=== PATIENT | male | born 1970 | race Caucasian/White ===

== ENCOUNTER 2022-09-01 09:20 | Outpatient (REF) | payer OTHER, SELFPAY | END 2022-09-01 09:21 | disposition home or self-care (01) | LOC: HO.MRI 09:20 | PROVIDERS: Visit Provider Nurse Practitioner Family | DX: G43.109 Migraine with aura, not intractable, without status migrainosus (principal); R41.0 Disorientation, unspecified; H53.129 Transient visual loss, unspecified eye | CPT/HCPCS: 70551 ==

== ENCOUNTER → 2022-11-04 13:04 | Outpatient (BNVA) | payer OTHER, SELFPAY | PROVIDERS: PCP Internal Medicine; Visit Provider Nurse Practitioner Family | DX: Z13.89 Encounter for screening for other disorder (principal) ==

== ENCOUNTER → 2023-01-26 07:59 | Outpatient (BNVA) | payer OTHER, SELFPAY | PROVIDERS: PCP Internal Medicine; Visit Provider Nurse Practitioner Family ==

== ENCOUNTER 2023-02-09 13:02 | Outpatient (REF) | payer OTHER, SELFPAY ==
--- NOTE | ~2023-02-09 | US_ITS ---
EXAMINATION: US EXTRACRANIAL CAROTID DUPLEX, BILATERAL CLINICAL INFORMATION: Hyperlipidemia. Hypertension. COMPARISON: None available. TECHNIQUE: Real-time ultrasound and Doppler techniques (integrating B-mode 2-D vascular images, Doppler spectral analysis and color-flow Doppler imaging) were utilized to interrogate the extracranial carotid arteries, the vertebral arteries and proximal subclavian arteries bilaterally. The degree of stenosis is determined by criteria similar to NASCET. FINDINGS: Right Side: 1. There is no atherosclerotic plaque seen in the bifurcation/proximal ICA region. 2. The common carotid artery PSV proximally is 106 cm/s and distally 104 cm/s. 3. The proximal internal carotid artery velocities are 84 cm/s systolic and 25 cm/s diastolic. 4. The proximal external carotid artery PSV is 120 cm/s. 5. The vertebral artery shows antegrade flow. 6. The subclavian artery waveforms are normal. Left Side: 1. There is no atherosclerotic plaque seen in the bifurcation/proximal ICA region. 2. The common carotid artery PSV proximally is 124 cm/s and distally 85 cm/s. 3. The proximal internal carotid artery velocities are 62 cm/s systolic and 26 cm/s diastolic. 4. The proximal external carotid artery PSV is 124 cm/s. 5. The vertebral artery shows antegrade flow. 6. The subclavian artery waveforms are normal. US/US carotid duplex BI IMPRESSION: 1. RIGHT: Normal right internal carotid artery without atherosclerotic plaque or hemodynamically significant stenosis. 2. LEFT: Normal left internal carotid artery without atherosclerotic plaque or hemodynamically significant stenosis.
== END 2023-02-09 13:03 | disposition home or self-care (01) ==
LOC: HO.US 13:02
PROVIDERS: PCP Internal Medicine; Visit Provider Nurse Practitioner Family
DX: E78.5 Hyperlipidemia, unspecified (principal); I10 Essential (primary) hypertension; H53.129 Transient visual loss, unspecified eye
CPT/HCPCS: 93880

== ENCOUNTER 2023-05-30 15:31 | Outpatient (AMB) | payer OTHER, SELFPAY ==
--- NOTE | 2023-05-30 15:34 | MHC.OFFVIS ---
Intake Vital Signs 05/30/23 15:35 Height 5 ft 6 in Weight 168 lb 2 oz BMI 27.1 Position Sitting Pulse 56 Pulse Source Pulse Oximeter Pulse Oximetry (%) 95 Oxygen Delivery Method Room Air Intake Visit Reasons: 4m follow up migraine - Confirmed Intake Note: Pt presents in office for a 4 month f/u migraine. pt states he is having fewer aura and confusional migraines. Pt thought maybe they were due to caffeine and pt cut his caffeine and he says he noticed a big difference. Byproducts Maker Required: No Allergies candesartan Allergy (Intermediate, Verified 05/30/23 15:38) Eye Swelling cephalexin [From Keflex] Allergy (Mild, Verified 05/30/23 15:38) Rash HPI HPI Comments History of Present Illness Details 53-yr-old male presents for f/u visit. Pt denies any significant interval medical changes. He thought that there was a correlation between the migraine aura and confusional migraine with the am coffee intake. He was drinking 1-2 cups of brewed coffee qam, and espresso after lunch.?He has reduced this by about a third. Since, he has had just 2 brief maybe 3 minutes of visual aura. He has not had any recent? confussional migraines. He has a few nagging headaches triggered by weather. 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 Social History Alcohol intake: current Alcohol intake frequency: a few times a month Patient Tobacco Use Status: Never used Tobacco Review of Systems Const All systems reviewed & are unremarkable except as noted in HPI and below Physical Exam Vital Signs: Last Vital Signs Pulse 56 05/30/23 15:35 Pulse Ox 95 05/30/23 15:35 Oxygen Delivery Method Room Air 05/30/23 15:35 BMI result Body Mass Index 27.1 Const General: cooperative and no acute distress Orientation/consciousness: patient oriented x3 HEENT Head: Yes normocephalic Resp Effort & Inspection: normal respiratory effort and able to speak in complete sentences Neuro General: patient oriented x3, gait normal and CN's II-XI intact bilaterally Cognition (Neuro): normal cognition Motor exam (neuro): 5/5 motor strength present throughout Psych Appearance: grossly normal Mental Status: mental status grossly normal Speech and movement: Normal speech and movement present Affect: normal affect Attitude: cooperative Thought process: Normal thought process present Thought content: Normal thought content present Insight: Good insight present (Psych) Judgement: Good judgement present (Psych) Assessment & Plan Assessment & Plan (1) Migraine with aura: Code(s): G43.109 - Migraine with aura, not intractable, without status migrainosus (2) Episodic confusion: Code(s): R41.0 - Disorientation, unspecified (3) Episode of visual loss: Code(s): H53.129 - Transient visual loss, unspecified eye Plan For acute headache treatment: Continue Ubrogepant 100mg tab- 1/2-1 tab at onset of migraine, may repeat in 2hrs. Trial at onset of aura, confusion, and for mild-mod nagging headaches. Previous acute migraine medication trials: Sumatriptan and Zomig. Acute migraine medication contraindications: All triptans- d/t HTN, HLD, artherosclerosis in setting of positive family h/o early CV dz. For headache prevention medication: Aimovig was denied by insurance. Continue Nadolol 10mg po qd- would not increase further d/t HR runs in 50s. Previous migraine prevention medication trials: Candesartan- increased eye pressure. A CCB (? verapamil)- not tolerated. Topiramate- sedation and cognitive side effects. Migraine prevention medication contraindications: Candesartan. TCAs- d/t h/o incomplete RBBB Discussed non-pharmacological options- such as Nerivio neuromodulation device. Future considerations: EEG, head CTA/MRA Coding Level of Care Code Est Pt Level 4 (95942) Diagnoses Migraine with aura G43.109 Episodic confusion R41.0 Episode of visual loss H53.129
[2023-05-30 15:35] VITALS: PULSE 56; O2SAT 95; BMI 27.1
== END 2023-05-30 16:28 | disposition home or self-care (01) ==
PROVIDERS: Visit Provider Nurse Practitioner Family
DX: G43.109 Migraine with aura, not intractable, without status migrainosus (principal); R41.0 Disorientation, unspecified; H53.129 Transient visual loss, unspecified eye
CPT/HCPCS: 99214

== ENCOUNTER → 2023-05-30 15:31 | Outpatient (BNVA) | payer OTHER, SELFPAY | PROVIDERS: Visit Provider Nurse Practitioner Family ==

== ENCOUNTER 2023-11-27 12:50 | Outpatient (AMB) | payer OTHER, SELFPAY ==
[2023-11-27 13:01] VITALS: BP 104/62; PULSE 43; O2SAT 99; BMI 28.1
--- NOTE | 2023-11-27 13:01 | MHC.OFFVIS ---
Intake Vital Signs 11/27/23 13:01 Height 5 ft 6 in Weight 174 lb BMI 28.1 BP 104/62 Blood Pressure Location Rt brachial Position Sitting Pulse 43 L Pulse Source Pulse Oximeter Pulse Oximetry (%) 99 Oxygen Delivery Method Room Air Intake Visit Reasons: 6 mo f/u for Migraines-LVM Intake Note: Patient presents for migraines. migraines are better Allergies candesartan Allergy (Intermediate, Verified 11/27/23 13:03) Eye Swelling cephalexin [From Keflex] Allergy (Mild, Verified 11/27/23 13:03) Rash Medication List - Last Reconciled 11/27/23 by FLEX Greer erenumab-aooe (Aimovig Autoinjector) 140 mg subcut ONCE 30 days nadolol 10 mg PO DAILY ubrogepant (Ubrelvy) 50 - 100 mg orally PRN; take at onset of migraine, may repeat in 2hrs (may take w/ Ibuprofen) 23 days zolmitriptan (Zomig) 1 spray intranasal Q2H PRN HPI HPI Comments History of Present Illness Details 53-yr-old male presents for f/u visit. Pt denies any significant interval medical changes. Pt endorses the following interval medical history changes: Had Covid-19 over the holidays. He recently had a course mild nasal/sinus/shivers. He did hold on his last of his f/u cardiac heart monitoring d/t change in insurance/cost. He has had 4 migraine headache days in the past month. Having less confusional episodes. Ubrelvy is helpful. Continues on Nadolol- prone to low BP and bradycardia- asymptomatic. He has had some mild vision visual aura He had one interval episode of vision loss- fireworks, window shade being pulled down, luis/black x's 30 seconds- and afterwards he can feel the eye (not really painful)- lasted longer than previous episodes- about 1 week ago. Baseline headache characteristics: Aura- Scintillating and streaky vision changes a/w area of vision loss- at most would last 20 minutes. About a once a year, has a vision change- looks like a window shade pulling down, and has vision loss x's 30 seconds and then resolves. About twice a year, he will feel like his eyes are crossing a/w eye pressure- this also lasts about 30 seconds. 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 Social History Alcohol intake: current Alcohol intake frequency: a few times a month Patient Tobacco Use Status: Never used Tobacco Physical Exam Vital Signs: Last Vital Signs Pulse 43 L 11/27/23 13:01 BP 104/62 11/27/23 13:01 Pulse Ox 99 11/27/23 13:01 Oxygen Delivery Method Room Air 11/27/23 13:01 BMI result Body Mass Index 28.1 Const General: cooperative and no acute distress Orientation/consciousness: patient oriented x3 Resp Effort & Inspection: normal respiratory effort and able to speak in complete sentences Neuro General: patient oriented x3 Cranial nerves: Yes CN's II-XII intact bilaterally Cognition (Neuro): normal cognition Psych Appearance: grossly normal Mental Status: mental status grossly normal Speech and movement: Normal speech and movement present Affect: normal affect Attitude: cooperative Assessment & Plan Assessment & Plan (1) Migraine with aura: Code(s): G43.109 - Migraine with aura, not intractable, without status migrainosus (2) Episode of visual loss: Code(s): H53.129 - Transient visual loss, unspecified eye (3) Episodic confusion: Code(s): R41.0 - Disorientation, unspecified Plan For acute headache treatment: Continue Ubrogepant 100mg tab- 1/2-1 tab at onset of migraine or onset of aura, confusion, and for mild-mod nagging headaches. Max 200mg/day. Previous acute migraine medication trials: Sumatriptan and Zomig. Acute migraine medication contraindications: All triptans- d/t HTN, HLD, artherosclerosis in setting of positive family h/o early CV dz. ? For headache prevention medication: Continue Nadolol 10mg po qd- would not increase further d/t HR runs in 50s. Previous migraine prevention medication trials: Candesartan- increased eye pressure. A CCB (? verapamil)- not tolerated. Topiramate- sedation and cognitive side effects. Migraine prevention medication contraindications: Candesartan. TCAs- d/t h/o incomplete RBBB Discussed non-pharmacological options- such as Nerivio neuromodulation device. ? Future considerations: EEG, head CTA/MRA Coding Level of Care Code Est Pt Level 4 (77789) Diagnoses Migraine with aura G43.109 Episode of visual loss H53.129 Episodic confusion R41.0
== END 2023-11-27 13:50 | disposition home or self-care (01) ==
PROVIDERS: PCP Internal Medicine; Visit Provider Nurse Practitioner Family
DX: G43.109 Migraine with aura, not intractable, without status migrainosus (principal); H53.129 Transient visual loss, unspecified eye; R41.0 Disorientation, unspecified
CPT/HCPCS: 99214

== ENCOUNTER → 2023-11-27 12:50 | Outpatient (BNVA) | payer OTHER, SELFPAY | PROVIDERS: PCP Internal Medicine; Visit Provider Nurse Practitioner Family ==

== ENCOUNTER 2024-05-31 08:40 | Outpatient (AMB) | payer OTHER, SELFPAY ==
[2024-05-31 08:41] VITALS: BP 124/82; BMI 26.6
--- NOTE | 2024-05-31 08:41 | A.OFFVIS_ITS ---
Vital Signs 05/31/24 08:41 Height 5 ft 6 in Weight 165 lb BMI 26.6 BP 124/82 Blood Pressure Location Rt brachial Position Sitting Intake Visit Reasons: 6 mo f/u Intake Note: Patient presents for follow up. Allergies candesartan Allergy (Intermediate, Verified 05/31/24 08:44) Eye Swelling cephalexin [From Keflex] Allergy (Mild, Verified 05/31/24 08:44) Rash Medication List - Last Reconciled 05/31/24 by FLEX Greer erenumab-aooe (Aimovig Autoinjector) 140 mg subcut ONCE 30 days nadolol 10 mg PO DAILY ubrogepant (Ubrelvy) 50 - 100 mg orally PRN; take at onset of migraine, may repeat in 2hrs (may take w/ Ibuprofen) 90 days zolmitriptan (Zomig) 1 spray intranasal Q2H PRN HPI Comments Details: 54-yr-old male presents for f/u visit. Pt denies any significant interval medical changes. Pt reports he is overall stable. He is having 4-5 migraine days per month. He did have one episode of left eye vision loss which was a bit longer, ~ 5-7 seconds. But did not have any other s/s with it. Compliant w/ Nadolol 10mg qd. He has tried to take the Nadolol qod but this resulted in an uptick in migraine s/s. His HR remains low- typically inn 40s. He is still struggling w/ constipation- which he attributes to Nadolol. He can feel low energy at times. Denies SOB, lightheadedness, dizziness. The Ubrelvy is still helpful. Baseline headache characteristics: Aura- Scintillating and streaky vision changes a/w area of vision loss- at most would last 20 minutes. About a once a year, has a vision change- looks like a window shade pulling down, and has vision loss x's 30 seconds and then resolves. About twice a year, he will feel like his eyes are crossing a/w eye pressure- this also lasts about 30 seconds. 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 Social History Alcohol intake: current Alcohol intake frequency: a few times a month Patient Tobacco Use Status: Never used Tobacco Physical Exam Vital Signs: Last Vital Signs BP 124/82 05/31/24 08:41 BMI result Body Mass Index 26.6 Const General: cooperative and no acute distress Orientation/consciousness: patient oriented x3 Resp Effort & Inspection: normal respiratory effort and able to speak in complete sentences Neuro General: patient oriented x3 Cranial nerves: Yes CN's II-XII intact bilaterally Cognition (Neuro): normal cognition Psych Appearance: grossly normal Mental Status: mental status grossly normal Speech and movement: Normal speech and movement present Affect: normal affect Attitude: cooperative Assessment & Plan Assessment & Plan (1) Migraine with aura: Code(s): G43.109 - Migraine with aura, not intractable, without status migrainosus Category: Medical (2) Bradycardia: Code(s): R00.1 - Bradycardia, unspecified Category: Medical (3) Episode of visual loss: Code(s): H53.129 - Transient visual loss, unspecified eye Category: Medical Plan For acute headache treatment: Continue Ubrogepant 100mg tab- 1/2-1 tab at onset of migraine or onset of aura, confusion, and for mild-mod nagging headaches. Max 200mg/day. Previous acute migraine medication trials: Sumatriptan and Zomig. Acute migraine medication contraindications: All triptans- d/t HTN, HLD, artherosclerosis in setting of positive family h/o early CV dz. ? For headache prevention medication: Start Ajovy 225mg/ml auto-injector, 1 ml subcutaneous injection monthly. Potential side effects include allergic reaction and injection site reactions. Once Ajovy available, wean off of Nadolol 10mg po qd at this is causing bradycardia and constipation. Previous migraine prevention medication trials: Candesartan- increased eye pressure. A CCB (? verapamil)- not tolerated. Topiramate- sedation and cognitive side effects. Beta-andria: Nadolol 10mg po qd at this is causing bradycardia and constipation. Migraine prevention medication contraindications: Candesartan. TCAs- d/t h/o incomplete RBBB. Discussed non-pharmacological options- such as Nerivio neuromodulation device. ? Future considerations: EEG, head CTA/MRA Medications: New fremanezumab-vfrm (Ajovy) administer 675mg sc q month 225 mg (1.5 mL) subcut ONCE 4.5 mL 1RF 90 days G43.109 - Migraine with aura, not intractable, without status migrainosus Discontinued erenumab-aooe (Aimovig Autoinjector) Discontinued Reason: Doctor's Order 140 mg subcut ONCE 30 days 1 mL 6RF Coding Level of Care Code Est Pt Level 4 (03231) Diagnoses Migraine with aura G43.109 Bradycardia R00.1 Episode of visual loss H53.129
== END 2024-05-31 09:37 | disposition home or self-care (01) ==
PROVIDERS: PCP Internal Medicine; Visit Provider Nurse Practitioner Family
DX: G43.109 Migraine with aura, not intractable, without status migrainosus (principal); R00.1 Bradycardia, unspecified; H53.129 Transient visual loss, unspecified eye
CPT/HCPCS: 99214

== ENCOUNTER → 2024-05-31 08:40 | Outpatient (BNVA) | payer OTHER, SELFPAY | PROVIDERS: PCP Internal Medicine; Visit Provider Nurse Practitioner Family ==

== ENCOUNTER 2024-12-11 14:04 | Outpatient (AMB) | payer OTHER, SELFPAY ==
--- NOTE | 2024-12-11 14:07 | A.OFFVIS_ITS ---
Vital Signs 12/11/24 14:11 Height 5 ft 6 in Weight 165 lb BMI 26.6 BP 110/84 Blood Pressure Location Lt brachial Position Sitting Pulse 66 Pulse Source Pulse Oximeter Pulse Oximetry (%) 98 Oxygen Delivery Method Room Air Intake Visit Reasons: Follow Up 6mo Intake Note: Patient presents follow up Migraine medication Clinical Data Manager Required: No Accompanied by: Self / Same As Patient Allergies candesartan Allergy (Intermediate, Verified 12/11/24 14:12) Eye Swelling cephalexin [From Keflex] Allergy (Mild, Verified 12/11/24 14:12) Rash HPI Comments Details: 54-yr-old male presents for f/u visit of migraine. Pt denies any significant interval medical changes. Pt has stopped nadolol- states it was not refilled, and so stopped it abruptly. Since stopping, he has not had an uptick in his migraine frequency. He finally received Ajovy- however he has not started it again as his migraine frequency has not increased to more than 2 attacks per month (or for headache days in total per month). Ubrelvy continues to be effective. Also since stopping, nadolol his heart rate has improved- today HR is 66. He also feels more daytime energy. He is having less frequent confusional migraines, and now when they occur they are shorter. He has been noticing some left eye droop. Chronic- but can feel it at times. Denies shortness of breath, weakness, double vision. Baseline migraine headache characteristics: Aura- Scintillating and streaky vision changes a/w area of vision loss- at most would last 20 minutes. About a once a year, has a vision change- looks like a window shade pulling down, and has vision loss x's 30 seconds and then resolves. About twice a year, he will feel like his eyes are crossing a/w eye pressure- this also lasts about 30 seconds. Moderate to Severe (If untreated), Unilateral (either left or right) aching or pounding pain a/w Photophobia, phonophobia, nausea, vomiting, activity intolerance, slightly increased pins and needles in his fingers. 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 Social History Alcohol intake: current Alcohol intake frequency: a few times a month Patient Tobacco Use Status: Never used Tobacco Physical Exam Vital Signs: Last Vital Signs Pulse 66 12/11/24 14:11 BP 110/84 12/11/24 14:11 Pulse Ox 98 12/11/24 14:11 Oxygen Delivery Method Room Air 12/11/24 14:11 BMI result Body Mass Index 26.6 Const General: cooperative and no acute distress Orientation/consciousness: patient oriented x3 Resp Effort & Inspection: normal respiratory effort and able to speak in complete sentences Neuro Other: Very mild baseline facial asymmetry. Otherwise symmetric elevation of eyebrows, symmetric strength and closing and opening eyelids, smile from. General: patient oriented x3 Cognition (Neuro): normal cognition Psych Appearance: grossly normal Mental Status: mental status grossly normal Speech and movement: Normal speech and movement present Affect: normal affect Attitude: cooperative Assessment & Plan Assessment & Plan (1) Migraine with aura: Code(s): G43.109 - Migraine with aura, not intractable, without status migrainosus Category: Medical (2) Bradycardia: Code(s): R00.1 - Bradycardia, unspecified Category: Medical (3) Episode of visual loss: Code(s): H53.129 - Transient visual loss, unspecified eye Category: Medical Plan For acute headache treatment: Continue Ubrogepant 100mg tab- 1/2-1 tab at onset of migraine or onset of aura, confusion, and for mild-mod nagging headaches. Max 200mg/day. Previous acute migraine medication trials: Sumatriptan and Zomig. Acute migraine medication contraindications: All triptans- d/t HTN, HLD, artherosclerosis in setting of positive family h/o early CV dz. ? For headache prevention medication: May hold Ajovy 225mg/ml order- however resume if headache frequency increases to more than 6 headache days per month. Patient is already weaned off of nadolol, and is feeling better in terms of overall energy and his heart rate has improved. Previous migraine prevention medication trials: Candesartan- increased eye pressure. A CCB (? verapamil)- not tolerated. Topiramate- sedation and cognitive side effects. Beta-andria: Nadolol 10mg po qd at this is causing bradycardia and constipation. Migraine prevention medication contraindications: Candesartan. TCAs- d/t h/o incomplete RBBB. Discussed non-pharmacological options- such as Nerivio neuromodulation device. For left eye droop: Brain MRI 2021- unremarkable. Left eye droop proceeds this MRI. We will continue to monitor. Future considerations: EEG, head CTA/MRA Pt to follow-up in 6 months or sooner prn. Coding Level of Care Code Est Pt Level 4 (29093) Diagnoses Migraine with aura G43.109 Bradycardia R00.1 Episode of visual loss H53.129
[2024-12-11 14:11] VITALS: BP 110/84; PULSE 66; O2SAT 98; BMI 26.6
--- OUTSIDE RECORDS SUMMARY | 2024-12-11 16:57 | XMS_ITS | Clinical Summary ---
Author Organization [address] Building Address [address] [place] [id number] Phone Care Team Providers Care Wanigan Clerk Name Role Phone Richi Engle MD Primary Care Provider [phone] Allergies Active Allergy Reactions Criticality Noted Date Comments Candesartan Cilexetil Other High 08/26/2019 eye pressure, blurry vision Cephalexin Monohydrate 02/21/2006 Keflex [cephalexin Monohydrate] ??rash as infant; however he is able to tolerate Augmentin without any problems so this allergy is in question Lactose 06/24/2022 Medications ubrogepant (UBRELVY) 100 mg tablet Take 100 mg by mouth as needed for Migraine. Per neurologist Active Active Problems Problem Noted Date Diagnosed Date Amaurosis fugax of left eye 01/08/2024 Ocular migraine 01/08/2024 Acquired dilation of ascending aorta and aortic root 11/23/2022 Overview (09/20/2024): Very mild enlargement of the ascending aorta. 3.7 cm in 2019. 3.9 cm in 2021. Last Assessment & Plan: He has mild enlargement of the ascending aorta. 3.7 cm in 2019. 3.9 cm in 2021. We will measure it again 1 year, January 2024. I will see him back after the echo. Sinus bradycardia 11/23/2022 Overview (09/20/2024): Last Assessment & Plan: I believe that he has a tendency toward sinus bradycardia for some reason and the nadolol 10 mg is making it worse. He has no symptoms and I do not think we need to do anything about it at this time. I reassured him. 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 I told him not to worry about this. Hearing loss 02/02/2012 Renal cyst 06/10/2008 Overview (09/20/2024): Prostatitis 12/13/2006 Overview (09/20/2024): IMO update Migraine 10/12/2006 Overview (09/20/2024): IMO update Encounters Date Type Department Care Team Description 09/27/2024 7:30 AM EST [facility]medicine [facility] [address] [facility] [place] [address] Honorio Pritchard NP Elevated blood pressure reading (Primary Dx) from Last 3 Months Immunizations Name Administration Dates Next Due H1N1 Inj Preservative Free 09/03/2009 Influenza trivalent, 0.5mL, preservative free (Fluarix; FluLaval; Fluzone) ages 6mo and older (Afluria) 3 years and older 10/14/2016,07/22/2015,09/27/2012,2009,09/03/2009,08/23/2007 Influenza, Unspecified 08/02/2021 Moderna SARS-CoV-2 COVID-19, mRNA, LNP-S, preservative free 08/10/2021,12/02/2020,11/05/2020 Td, Unspecified 10/10/2001 Tdap Tetanus diptheria acell ular pertussis (Boostrix; Adacel) 7yo and older 03/11/2020,08/09/2010 Zoster recombinant (Shingrix ) 19yo and older 06/03/2022 Surgical History Surgery Date Site/Laterality Comments COLONOSCOPY 04/13/09 PROCEDURE: HISTORICAL COLONOSCOPY; COMMENT: normal; repeat in five years COLONOSCOPY PROCEDURE: COLOREC CANC SCRN,COLONOSCPY HI RISK; COMMENT: tics and hemorrhoids; repeat in 5 yrs ADENOIDECTOMY PROCEDURE: HISTORICAL ADENOIDECTOMY Medical History Medical History Date Comments Migraine, unspecified, witho ut mention of intractable migraine without mention of status migrainosus 10/12/2006 DX:Migraine, unspecified , without mention of intractable migraine without mention of status migrainosus Historical Medical DX 06/10/2008 DX:Kidney cyst; COMMENT: Bosniak II lesion in the upper pole of the left kidney, consistent with a minimally complex cyst. 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 sourc e Migraines Mother No Known Problems Paternal Grandfather ne juhi knew Colon cancer Paternal Grandmother Other: cardiac myxoma Paternal Grandmother No Known Problems Sister No Known Problems Son CABG Uncle 1 Other: Other Uncle 2 retinal detachm ent Blindness Neg Hx Glaucoma Neg Hx Macular degeneration Neg Hx Strabismus Neg Hx Relation Name Status Comments Aunt Daughter 1 Alive born '05 Type 1 diabetic on insulin pump Daughter 2 Alive born '07 Father atrial mixoma. colon CA dx'd age 76 & father's sister colon CA age 62 Maternal Grandfather (Age 48) [place] Maternal Grandmother Mother Alive healthy Paternal Grandfather Paternal Grandmother of colon CA Sister Alive 2 yrs younger t roldan pt, healthy Son born ?2010 Uncle 1 Alive age 50's CABG ( maternal uncle) Uncle 2 Social History Tobacco Use Types Packs/Day Years Used Date Smoking Tobacco: Never Smokeless Tobacco: Never Alcohol Use Standard Drinks/Week Comments Yes 0 (1 standard drink = 0.6 oz pur e alcohol) Housing Instability Answer Date Recorde d Are you worried that in the next 2 months you may not have stable housing? No 09/20/2024 Food Access & Nutrition Answer Date Rec orded Do you have access to a vari ety of food including fruits and vegetables? Yes 09/20/2024 Access to Healthcare Answer Date Record ed Within the last 3 months, ho w many times did you visit the emergency department for your medical care? 0 09/20/2024 Health Literacy Answer Date Recorded How often do you need to hav e someone help you when you read instructions, pamphlets, or other written material from your doctor or pharmacy? Never 09/20/2024 Caregiver: How often do you need to have someone help you when you read instructions, pamphlets, or other written material from your doctor or pharmacy? Not on file 09/20/2024 Financial Risk Answer Date Recorded How hard is it for you to pa y for the very basics like food, housing, medical care, and air conditioning / heating? Not very hard 09/20/2024 Transportation Answer Date Recorded Has the lack of transportati on kept you from meetings, work, or from getting things needed for daily living? No Has the lack of transportati on kept you from medical appointments or from getting medications? No 09/20/2024 Social Isolation Answer Date Recorded How often do you feel lonely or isolated from th ose around you? Never 09/20/2024 Food Risk Answer Date Recorded Within the past 12 months we worried whether our food would run out before we got money to buy more. Never true 09/20/2024 Within the past 12 months th e food we bought just didn't last and we didn't have money to get more. Never true 09/20/2024 Dependent Care Answer Date Recorded Do you need help finding or paying for care for your loved ones. For example, early childhood special educator or elderly care for an older adult? No 09/20/2024 Education Answer Date Recorded Do you think completing more education or training, like finishing a GED, going to college, or learning a trade, would be helpful for you? N/A 09/20/2024 Employment and Income Answer Date Recor ded During the last four weeks, have you been actively looking for work? No 09/20/2024 Living Situation Answer Date Recorded What is your living situation? 0 09/20/2024 Sex and Gender Information Value Date Recorded Sex Assigned at Not on file Legal Sex Male 11:05 AM EST Gender Identity Not on file Sexual Orientation Not on file Obstetrics History Last Filed Vital Signs Vital Sign Reading Time Taken Comments Blood Pressure 128/80 03/20/2024 8:53 AM EDT Pulse 50 03/20/2024 8:53 AM EDT Temperature - - Respiratory Rate - - Oxygen Saturation - - Inhaled Oxygen Concentration - - Weight 75.6 kg (166 lb 11.2 oz) 03/20/2024 8:53 AM EDT Height 167.6 cm (5' 6 ) 03/04/2024 10:1 7 AM EDT Body Mass Index 26.91 03/04/2024 10:17 AM EDT Plan of Treatment Upcoming Encounters Date Type Department Care Team (Late st Contact Info) Description 03/25/2025 9:20 AM EDT Office Visit [facility] [address] [address] Black Main MD [address] [address] Health Maintenance Due Date Last Done Comments Hepatitis B Vaccines (1 of 3 - 19+ 3-dose series) 01/17/1988 Pneumococcal Vaccine: 50+ Years (1 of 1 - PCV) 2019 COVID-19 Vaccine ( season) 2024 08/10/2021, 12/02/2020, 11/05/2020 Influenza Vaccine (#1) 2024 , 07/23/2021, 08/11/2020, Additional history exists Depression Screening 09/20/2025 09/20/2024 Social Influencers of Health Screening 09/20/2025 09/20/2024 Colorectal Cancer Screening: Colonoscopy 11/29/2026 11/29/2021 Cholesterol Screening (Lipid Panel) 02/14/2029 02/15/2024, 02/15/2024, 11/07/2022 DTaP,Tdap,and Td Vaccines (4 - Td or Tdap) 03/11/2030 03/11/2020, 08/09/2010, 10/10/2001 HIV Screening Completed 12/13/2006 Hepatitis C Screening Completed 11/16/2022 Zoster Vaccines Completed 12/22/2022, 06/03/2022 HIB Vaccines Aged Out No longer eligi ble based on patient's age to complete this topic HPV Vaccines Aged Out No longer eligi ble based on patient's age to complete this topic Hepatitis A Vaccines Aged Out No long er eligible based on patient's age to complete this topic IPV Vaccines Aged Out No longer eligi ble based on patient's age to complete this topic MMR Vaccines Aged Out No longer eligi ble based on patient's age to complete this topic Meningococcal ACWY Vaccine Aged Out N o longer eligible based on patient's age to complete this topic Meningococcal B Vacine Aged Out No lo nger eligible based on patient's age to complete this topic Pneumococcal Vaccine: Pediatrics (0 to 5 Years) and At-Risk Patients (6 to 64 Years) Aged Out No longer eligible based on patient's age to complete this topic RSV Immunization Patients Under 20 months Aged Out No longer eligible based on patient's age to complete this topic Varicella Vaccines Aged Out No longer eligible based on patient's age to complete this topic Procedures Procedure Name Priority Date/Time Associated Diagnosis Comments HEPATITIS C SCREENING Routine 11/16/2022 LIPID PANEL Routine 11/07/2022 COLONOSCOPY Routine 11/29/2021 HIV SCREENING Routine 12/13/2006 from Last 3 Months or Most Recently Relevant to Health Maintenance Results * Hepatitis C Screening (11/16/2022) Hepatitis C Screening Abstracted us Historical Provider HEALTH MAINTENANCE Final Result * Lipid panel (11/07/2022) LDL/HDL Ratio 3 0 - 4 Triglycerides 113 0 - 150 mg/dL Cholesterol 179 0 - 200 mg/dL HDL 57 >=40 mg/dL LDL Cholesterol 100 0 - 100 mg/dL Blood Venous blood specimen / Unknown Historical Provider LAB BLOOD ORDERABLES Shima l Result * Colonoscopy (11/29/2021) Colonoscopy No Interpretation , Abstracted Anatomical Region Laterality Modality Other Historical Provider HEALTH MAINTENANCE Final Result * HIV Screening (12/13/2006) Pathologist [facility] HIV Screening Abstracted Historical Provider HEALTH MAINTENANCE Final Result from Last 3 Months or Most Recently Relevant to Health Maintenance Insurance [employer] Care Teams Wanigan Clerk Relationship Specialty Start Date End Date Richi Engle MD [address] [place] [phone] PCP - General Internal Medicine 08/06/20
--- OUTSIDE RECORDS SUMMARY | 2024-12-11 16:57 | XMS_ITS | Clinical Summary ---
Author Organization [facility] Address [address] [place] [address] Care Team Providers Care Barrel Washer Name Role Phone Unavailable Primary Care Provider Unavailabl e Social History Tobacco Use Types Packs/Day Years Used Date Smoking Tobacco: Never Assessed Sex and Gender Information Value Date Recorded Sex Assigned at Not on file Gender Identity Not on file Sexual Orientation Not on file Plan of Treatment Health Maintenance Due Date Last Done Comments Hepatitis B Vaccines (1 of 3 - 3-dose series) 1969 Hepatitis C Screening 1969 COVID-19 Vaccine (#1) 1969 Depression Screening 1981 Preventative Health Evaluation 1987 Colon Cancer Screening (Colonoscopy) 2014 Shingrix-Zoster Vaccine (2 of 2) 07/29/2022 06/03/2022 Influenza Vaccine (#1) 2024 7, 07/22/2015, 09/27/2012, Additional history exists DTap / Tdap / Td (3 - Td or Tdap) 03/11/2030 03/11/2020, 08/09/2010 Pneumococcal Vaccine Aged Out No long er eligible based on patient's age to complete this topic RSV Ped < 20 months Aged Out No longe r eligible based on patient's age to complete this topic
--- OUTSIDE RECORDS SUMMARY | 2024-12-11 16:57 | XMS_ITS ---
Author Name [facility] Organization Unknown Results Test Name/Text Value Interpretation Date Range Source [facility] GROSS DESCRIPTION Received in formalin is an irregularly shaped fragment of skin measuring 0.5x0.4x0.2 cm. The specimen is bisected and submitted entirely in one cassette. (Gross description performed by [facility].) Normal [facility] CLINICAL INFORMATION Irritated angioma Normal [facility] PSA SERPL-[facility] 0.6ng/mL Normal [id number] 0 - 4 [facility] CALCIUM SERPL [facility] 9.1mg/dL Normal [id number] 8.4 - 10 .2 [facility] ANION GAP SERPL [facility] 8mmol/L Normal [id number] 5 - 14 [facility] Glomerular filtration rate/1.73 sq M. predicted 89 Normal [id number] 60 - [facility] HCO3 SER [facility] 27mmol/L Normal [id number] 24 - 32 [facility] AST SERPL [facility] 18U/L Normal [id number] 5 - [address] [facility] BUN SERPL [facility] 17mg/dL Normal [id number] 9 - 20 [facility] CHLORIDE SERPL [facility] 108mmol/L Above high normal [id number] 98 - 107 [facility] ALBUMIN SERPL BCG MCNC 4.1g/dL Normal [id number] 3.5 - 5 [facility] ALP SERPL-[facility] 62U/L Normal [id number] 34 - 104 [facility] ALT SERPL [facility] 11U/L Normal [id number] 7 - 52 [facility] CREAT SERPL [facility] 1mg/dL Normal [id number] 0.7 - 1.3 [facility] SODIUM SERPL [facility] 143mmol/L Normal [id number] 135 - 145 [facility] PROT SERPL [facility] 6.8g/dL Normal [id number] 6.4 - 8.5 C [facility] BILIRUB SERPL [facility] 0.5mg/dL Normal [id number] 0.3 - 1 [facility] GLUCOSE P FAST SERPL [facility] 86mg/dL Normal [id number] 70 - 99 [facility] POTASSIUM [facility] 4.4mmol/L Normal [id number] 3.5 - 5.1 [facility] LDLc SerPl Calc-mCnc 99mg/dL Normal [id number] 50 - 130 [facility] TRIGL [facility] 79mg/dL Normal [id number] - 150 [facility] CHOLEST SERPL-MCNC 158mg/dL Normal [id number] 0 - 200 [facility] HDLC SERPL-[facility] 43mg/dL Normal [id number] 32 - 70 [facility] DIFFERENTIAL TYPE AUTOMATED Normal [id number] [facility] PLATELET NO. BLD AUTO 215K/uL Normal [id number] 150 - 450 [facility] RBC NO. BLD AUTO 4.17M/uL Below low normal [id number] 4.7 - 6 [facility] LYMPHOCYTES NO. BLD AUTO 1.8K/uL Normal [id number] 1 - 3.2 [facility] EOSINOPHIL NO. BLD AUTO 0.2K/uL Normal [id number] 0 - 0.5 [facility] MCH RBC QN AUTO 33.6pg Above high normal [id number] 25 - 33 [facility] MCHC RBC AUTO MCNC 35.4g/dL Normal [id number] 32 - 36 [facility] MONOCYTES NFR BLD AUTO 9.2% Normal [id number] 2 - 12 [facility] LYMPHOCYTES NFR BLD AUTO 37% Normal [id number] 20 - 48 [facility] EOSINOPHIL NFR BLD AUTO 3% Normal [id number] 0 - 6 [facility] HGB BLD MCNC 14g/dL Normal [id number] 13.5 - 18 [facility] NEUTROPHILS NO. BLD AUTO 2.5K/uL Normal [id number] 1.8 - 7.8 [facility] WBC NO. BLD AUTO 5K/uL Normal [id number] 4 - 10.5 [facility] BASOPHILS NFR BLD AUTO 0.9% Normal [id number] 0 - 2 [facility] MONOCYTES NO. BLD AUTO 0.5K/uL Normal [id number] 0 - 0.8 [facility] MCV RBC AUTO 95fL Normal [id number] 78 - 100 [facility] NEUTROPHILS NFR BLD AUTO 49.9% Normal [id number] 44 - 74 [facility] BASOPHILS IN BLOOD BY AUTOMATED COUNT 0K/uL Normal [id number] 0 - 0.2 [facility] PMV BLD AUTO 8.4fL Normal [id number] 7.4 - 11.4 [facility] RDW RBC AUTO RTO 12.8% Normal [id number] 12.1 - 17. 7 [facility] HCT VFR BLD AUTO 39.6% Below low normal [id number] 40 - 54 [facility] Encounters Encounter Type Encounter Reason Primary Diagnosis Location Date Ambulatory Encounter for general adult medical examination without abnormal findings Encounter for general adult medical examination without abnormal findings [facility] 02/15/2024 Ambulatory Allergic contact dermatitis due to plants, except food [employer] 01/22/2022 Care Team Organization Name Specialty Phone Email Start Date End Da te [facility] 02/15/2024 [facility] 02/15/2024 [employer] NO PCP Primary Care 01/22/2022 01/22/2022 [employer] Richi Hernandez Primary Care 01/22/2022 01/22/2022 [employer] JULIO HERNANDEZ Primary Care 01/22/2022 05/06/2024
--- OUTSIDE RECORDS SUMMARY | 2024-12-11 16:57 | XMS_ITS | Clinical Summary ---
Author Organization [facility] Address [address] [place] [address] Care Team Providers Care Out Patient Therapist Name Role Phone Richi Engle MD Primary Care Provider Un available Allergies Active Allergy Reactions Criticality Noted Date Comments Candesartan Other (See Comments) High 08/26/2019 eye pressure, blurry vision eye pressure, blurry vision Cephalexin Hives Medium 02/21/2006 ??rash as infant; however he is able to tolerate Augmentin without any problems so this allergy is in question ??rash as infant; however he is able to tolerate Augmentin without any problems so this allergy is in question Medications Medication Sig Dispensed Refills Start Date End Date Status nadolol (CORGARD) 20 MG tablet Take 10 mg by mouth. 10/25/2019 Active ZOLMitriptan (ZOMIG) 5 MG nasal solution into each nostril. Active betamethasone dipropionate (DIPROLENE) 0.05 % ointmentIndications:Po kellen anna dermatitis Apply topically 2 (two) times a day. 45 g 01/22/2022 Active Active Problems Problem Noted Date Diagnosed Date Migraine without aura and wi thout status migrainosus, not intractable 08/31/2020 Family History Medical History Relation Name Comments Atrial fibrillation Father Colon cancer Father Transient ischemic attack Mother Relation Name Status Comments Father Mother Alive Sister Alive Social History Tobacco Use Types Packs/Day Years Used Date Smoking Tobacco: Never Smokeless Tobacco: Never Alcohol Use Standard Drinks/Week Comments Yes 0 (1 standard drink = 0.6 oz pur e alcohol) Sex and Gender Information Value Date Recorded Sex Assigned at Not on file Gender Identity Not on file Sexual Orientation Not on file Last Filed Vital Signs Vital Sign Reading Time Taken Comments Blood Pressure 124/74 01/22/2022 2:02 PM EDT Pulse 76 01/22/2022 2:02 PM EDT Temperature 36.4 ??C (97.6 ??F) 01/22/2022 2:02 PM ED T Respiratory Rate - - Oxygen Saturation 98% 01/22/2022 2:02 PM EDT Inhaled Oxygen Concentration - - Weight - - Height - - Body Mass Index - - Plan of Treatment Health Maintenance Due Date Last Done Comments Hepatitis C Virus Screening 1969 HIV Screening 1982 DTaP/Tdap/Td Vaccines (1 - Tdap) 01/17/1988 Hepatitis B Vaccines (1 of 3 - 19+ 3-dose series) 01/17/1988 Colonoscopy 2014 Pneumococcal Vaccines 50+ (1 of 1 - PCV) 2019 Zoster (Shingles) Vaccine (1 of 2) 2019 Influenza Vaccine 04/18/2024 07/23/2021, , 10/11/2019, Additional history exists COVID-19 Vaccine (2023- season) 2024 01/20/2022, 08/10/2021, 12/02/2020, Additional history exists Pneumococcal Vaccine: Pediatric (0-5 Years) and At-Risk Patients (6 to 49 Years) Aged Out No longer eligible based on patient's age to complete this topic Insurance Payer Benefit Plan / Group Subscriber ID Effective Dates Phone Address [facility] [id number] [address] Care Teams Out Patient Therapist Relationship Specialty Start Date End Date Richi Engle MD PCP - General Internal Medicine 01/22/22
== END 2024-12-11 14:56 | disposition home or self-care (01) ==
LOC: HO.HSMS 14:05
PROVIDERS: PCP Internal Medicine; Visit Provider Nurse Practitioner Family
DX: G43.109 Migraine with aura, not intractable, without status migrainosus (principal); R00.1 Bradycardia, unspecified; H53.129 Transient visual loss, unspecified eye
CPT/HCPCS: 99214

== ENCOUNTER → 2024-12-11 14:04 | Outpatient (BNVA) | payer OTHER, SELFPAY | PROVIDERS: PCP Internal Medicine; Visit Provider Nurse Practitioner Family ==

== ENCOUNTER 2025-05-28 08:05 | Outpatient (REF) | payer OTHER, SELFPAY ==
--- OUTSIDE RECORDS SUMMARY | 2025-05-28 08:58 | XMS_ITS | Clinical Summary ---
Author Organization [facility] Address [address] [place] [address] Care Team Providers Care National Sales Consultant Name Role Phone Unavailable Primary Care Provider [...] of 2) 07/29/2022 06/03/2022 Influenza Vaccine (#1) 2025 7, 07/22/2015, 09/27/2012, Additional history exists DTap / Tdap / Td (3 - Td or Tdap) 03/11/2030 03/11/2020, 08/09/2010 Pneumococcal Vaccine Aged Out No long er eligible based on patient's age to complete this topic RSV Ped < 20 months Aged Out No longe r eligible based on patient's age to complete this topic
--- OUTSIDE RECORDS SUMMARY | 2025-05-28 08:58 | XMS_ITS | Clinical Summary ---
Author Organization [facility] Address [address] [place] [address] Care Team Providers Care Well Services Operator Name Role Phone Richi Engle MD Primary Care Provider Un available Allergies Active Allergy Reactions Criticality Noted Date Comments Candesartan Other (See Comments) High 08/26/2019 eye pressure, blurry vision eye pressure, blurry vision Cephalexin Hives Medium 02/21/2006 ??rash as infant; however he is able to tolerate Augmentin without any problems so this allergy is in question ??rash as ; however he is able to tolerate Augmentin without any problems so this allergy is in question Medications nadolol (CORGARD) 20 MG tablet Take 10 mg by mouth. 0 Active ZOLMitriptan (ZOMIG) 5 MG nasal solution into each nostril. Active betamethasone dipropionate (DIPROLENE) 0.05 % ointmentIndicatio ns:Poison anna dermatitis Apply topically 2 (two) times a day. 45 g 2 Active Active Problems Problem Noted Date Diagnosed Date Migraine without aura and wi thout status migrainosus, not intractable 08/31/2020 Encounters Date Type Department Care Team Description 03/31/2025 8:50 AM EDT Ancillary Procedure [facility] [address] [place] [address] 03/31/2025 8:45 AM EDT [facility] [place] [address] Ny Thayer, SONU Right lateral epicondylitis (Primary Dx) from Last 3 Months Family History Medical History Relation Name Comments [...] at Not on file Legal Sex Male 11:44 AM EDT Gender Identity Not on file Sexual Orientation Not on file Last Filed Vital Signs Vital Sign Reading Time Taken Comments Blood Pressure 124/74 01/22/2022 2:02 PM EDT Pulse 76 01/22/2022 2:02 PM EDT Temperature 36.4 C (97.6 F) 01/22/2022 2:02 PM EDT Respiratory Rate - - Oxygen Saturation 98% [...] Vaccine (1 of 2) 2019 Influenza Vaccine 04/18/2025 06/01/2024, , 09/28/2022, Additional history exists COVID-19 Vaccine Completed 06/01/2024, , 09/28/2022, Additional history exists Procedures Procedure Name Priority Date/Time Associated Diagnosis Comments XR ELBOW 3+ VIEWS-RIGHT Routine 03/31/2025 8:57 AM EDT Right lateral epicondylitis from Last 3 Months Results * XR Elbow 3+ views-Right (03/31/2025 8:57 AM EDT) Narrative [facility] - 03/31/2025 8:57 AM EDT This exam was performed in office at [facility] and images reviewed by orthopedic provider. Any findings are documented within ambulatory encounter note on date of service. Ny Thayer PA-C IMG DIAGNOSTIC IMAGING ORD ERABLES Final Result [facility] from Last 3 Months Insurance [employer] HMO/POS Care Teams Well Services Operator Relationship Specialty Start Date End Date Richi Engle MD PCP - General Internal Medicine 01/22/22
--- OUTSIDE RECORDS SUMMARY | 2025-05-28 08:58 | XMS_ITS ---
[facility] Name [facility] Organization Unknown Results Test Name/Text Value Interpretation Date Range Source LAB AP CLINICAL INFORMATION Irritated angioma Normal 06/06/2024 [facility] UCONNPATH LAB AP GROSS DESCRIPTION Received in formalin is an irregularly shaped fragment of skin measuring 0.5x0.4x0.2 cm. The specimen is bisected and submitted entirely in one cassette. (Gross description performed by [facility].) Normal 06/06/2024 [facility] EOSINOPHIL NFR BLD AUTO 3.0 % Normal 02/15/2024 0 - 6 [facility] EOSINOPHIL NO. BLD AUTO 0.2 K/uL Normal 02/15/2024 0 - 0.5 [facility] PLATELET NO. BLD AUTO 215.0 K/uL Normal 02/15/2024 150 - 450 [facility] WBC NO. BLD AUTO 5.0 K/uL Normal 02/15/2024 4 - 10.5 CT [facility] NEUTROPHILS NFR BLD AUTO 49.9 % Normal 02/15/2024 44 - 74 [facility] LYMPHOCYTES NFR BLD AUTO 37.0 % Normal 02/15/2024 20 - 48 [facility] MCH RBC QN AUTO 33.6 pg Above high normal 02/15/2024 25 - 33 [facility] HCT VFR BLD AUTO 39.6 % Below low normal 02/15/2024 40 - 54 [facility] HGB BLD MCNC 14.0 g/dL Normal 02/15/2024 13.5 - 18 [facility] BASOPHILS NFR BLD AUTO 0.9 % Normal 02/15/2024 0 - 2 [facility] PMV BLD AUTO 8.4 fL Normal 02/15/2024 7.4 - 11.4 [facility] MH MCV RBC AUTO 95.0 fL Normal 02/15/2024 78 - 100 [facility] MCHC RBC AUTO MCNC 35.4 g/dL Normal 02/15/2024 32 - 36 [facility] DIFFERENTIAL TYPE AUTOMATED Normal 02/15/2024 C [facility] BASOPHILS IN BLOOD BY AUTOMATED COUNT 0.0 K/uL Normal 02/15/2024 0 - 0.2 [facility] RDW RBC AUTO RTO 12.8 % Normal 02/15/2024 12.1 - 17.7 [facility] MONOCYTES NO. BLD AUTO 0.5 K/uL Normal 02/15/2024 0 - 0.8 [facility] LYMPHOCYTES NO. BLD AUTO 1.8 K/uL Normal 02/15/2024 1 - 3.2 [facility] NEUTROPHILS NO. BLD AUTO 2.5 K/uL Normal 02/15/2024 1.8 - 7.8 [facility] MONOCYTES NFR BLD AUTO 9.2 % Normal 02/15/2024 2 - 12 [facility] RBC NO. BLD AUTO 4.17 M/uL Below low normal 02/15/2024 4.7 - 6 [facility] CHOLEST SERPL-MCNC 158.0 mg/dL Normal 02/15/2024 0 - 200 [facility] HDLC SERPL-MCNC 43.0 mg/dL Normal 02/15/2024 32 - 70 [facility] LDLc SerPl Calc-mCnc 99.0 mg/dL Normal 02/15/2024 50 - 130 [facility] TRIGL SERPL-MCNC 79.0 mg/dL Normal 02/15/2024 - 150 [facility] PSA SERPL-MCNC 0.6 ng/mL Normal 02/15/2024 0 - 4 [facility] BUN SERPL MCNC 17.0 mg/dL Normal 02/15/2024 9 - 20 [facility] CHLORIDE SERPL SCNC 108.0 mmol/L Above high normal 98 - 107 [facility] Glomerular filtration rate/1.73 sq M. predicted 89.0 Normal 02/15/2024 60 - [facility] PROT SERPL MCNC 6.8 g/dL Normal 02/15/2024 6.4 - 8.5 [facility] POTASSIUM SERPL SCNC 4.4 mmol/L Normal 02/15/2024 3.5 - 5.1 [facility] AST SERPL CCNC 18.0 U/L Normal 02/15/2024 5 - 40 [facility] SODIUM SERPL SCNC 143.0 mmol/L Normal 02/15/2024 135 - 14 [facility]ST [facility] 86.0 mg/dL Normal 02/15/2024 70 - [facility] ALBUMIN [facility] BCG MCNC 4.1 g/dL Normal 02/15/2024 3.5 - 5 [facility] ALP [facility]-CCNC 62.0 U/L Normal 02/15/2024 34 - 104 [facility] ALT SERPL CCNC 11.0 U/L Normal 02/15/2024 7 - [facility] BILIR[facility] 0.5 mg/dL Normal 02/15/2024 0.3 - 1 [facility] CALCIUM [facility] 9.1 mg/dL Normal 02/15/2024 8.4 - 10.2 [facility] CREAT [facility] 1.0 mg/dL Normal 02/15/2024 0.7 - 1.3 CT [facility] ANION GAP SERPL SCNC 8.0 mmol/L Normal 02/15/2024 5 - 14 [facility] HCO3 SER SCNC 27.0 mmol/L Normal 02/15/2024 24 - 32 [facility] History of Medication Use Medication Directions Dispensed Refills Start Date End Date Stat us betamethasone dipropionate (DIPROLENE) 0.05 % ointment Apply topically 2 (two) times a day. 01/22/2022 active nadolol (CORGARD) 20 MG tablet Take 10 mg by mouth. 10/25/2019 active ZOLMitriptan (ZOMIG) 5 MG nasal solution into each nostril. active Allergies Allergen Reaction Severity Comment Documented Date Source Statu s CANDESARTAN OTHER (SEE COMMENTS) eye pressure, blurry vision 08/26/2019 [facility] active CEPHALEXIN HIVES ??rash as infan t; however he is able to tolerate Augmentin without any problems so this allergy is in question 02/21/2006 [facility] active Problems Problem Status Onset Date Problem Type Date of Resolution Source Migraine without aura and without status migrainosus, not intractable active 2020-08-31 ProblemAct [facility] Right lateral epicondylitis active EncounterDiagnosisAct [facility] Encounters Encounter Type Encounter Reason Primary Diagnosis Location Date Ambulatory [facility] 03/31/2025 Ambulatory Pain in right elbow Pain in right elbow [facility] 03/31/2025 Ambulatory [facility] 01/08/2025 Ambulatory Pain in left hip Pain in left hip [facility] 01/08/2025 Ambulatory Encounter for general adult medical examination without abnormal findings Encounter for general adult medical examination without abnormal findings [facility] 02/15/2024 Ambulatory Allergic contact dermatitis due to plants, except food [facility] 01/22/2022 Care Team Organization Name Specialty Phone Email Start Date End Da te [facility] 04/17/2025 [facility] Richi Hernandez Primary Care 01/10/2025 04/29/2025 [facility][1] 01/08/2025 [facility] 02/15/2024 04/01/2025 [facility] 02/15/2024 [facility] Richi Hernandez Primary Care 07/26/2022 05/06/2024 [facility] JULIO HERNANDEZ Primary Care 01/22/2022 04/29/2025 [facility] Richi Hernandez Primary Care 01/22/2022 01/22/2022 [facility] NO PCP Primary Care 01/22/2022 01/22/2022
--- OUTSIDE RECORDS SUMMARY | 2025-05-28 08:58 | XMS_ITS | Clinical Summary ---
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 Followed by urology. Migraine 10/12/2006 Overview (09/20/2024): IMO update Resolved Problems Problem Noted Date Diagnosed Date Resolved Date Prostatitis 12/13/2006 04/07/2025 Overview (09/20/2024): IMO update Encounters Date Type Department Care Team Description 04/21/2025 11:00 AM EDT Office Visit [facility] [address] [place], [place] [phone] Richi Engle MD Abdominal mass, LUQ (left upper quadrant) (Primary Dx); Renal cyst; Liver cyst 04/17/2025 Telephone Vascular Surgery - [place] [address] [place] [address] Bradley Salvador MD 04/16/2025 Telephone Internal Medicine - [facility] [address] [place], [place] [phone] Richi Engle MD 04/07/2025 10:45 AM EDT Office Visit Internal Medicine - [address] [phone] Caitlin Moses, RAMON Migraine without aura and without status migrainosus, not intractable (Primary Dx); Ocular migraine; Hearing loss, unspecified hearing loss type, unspecified laterality; Incomplete RBBB; Sinus bradycardia; Cardiac myxoma; Acquired dilation of ascending aorta and aortic root (CMS/HCC V24); Renal cyst; Family history of premature coronary artery disease; RPE mottling of macula; Annual physical exam; Lesion of liver; Abdominal mass of other site; Screening for metabolic disorder 04/03/2025 Telephone [facility] Cardiology [facility] [address] [facility] [address] [place] [address] Black eD Anda MD 04/01/2025 8:40 AM EDT Lab Draw Station - [address] Severe sinus bradycardia (Primary Dx); Dilatation of thoracic aorta (CMS/HCC V24) 03/25/2025 9:20 AM EDT Office Visit [facility] - [address] [place] [phone] Black De Anda MD Acquired dilation of ascending aorta and aortic root (CMS/HCC V24) (Primary Dx); Sinus bradycardia; Amaurosis fugax of left eye; Incomplete RBBB; Family history of premature coronary artery disease from Last 3 Months Immunizations Name Administration [...] [place] age 62 Maternal Grandfather (Age 48) [place] Maternal Grandmother Mother Alive healthy Paternal Grandfather [...] care for your loved ones. For example, children's service supervisor or elderly care for an older adult? [...] Sign Reading Time Taken Comments Blood Pressure 122/76 04/21/2025 10:59 AM EDT Pulse 52 04/21/2025 10:59 AM EDT Temperature 36.9 C (98.4 F) 04/07/2025 10:59 AM EDT Respiratory Rate - - Oxygen Saturation 97% 03/25/2025 9:31 AM EDT Inhaled Oxygen Concentration - - Weight 73.7 kg (162 lb 8 oz) 04/21/2025 10:59 AM EDT Height 168.9 cm (5' 6.5 ) 04/21/2025 10:59 AM ED T Body Mass Index 25.84 04/21/2025 10:59 AM EDT Plan of Treatment Upcoming Encounters Date Type Department Care Team (Late st Contact Info) Description 07/07/2025 8:00 AM EDT Ancillary Procedure [facility] - [address] [place] [address] 07/23/2025 8:15 AM EST [facility] [phone] 07/30/2025 8:30 AM EST Office Visit Internal Medicine - [address] [phone] Caitlin Moses, RAMON [address] [place] [phone] Health Maintenance Due Date Last Done Comments Influenza Vaccine (#1) 2025 , 07/23/2021, 08/11/2020, Additional history exists Social Influencers of Health Screening 09/20/2025 09/20/2024 Colorectal Cancer Screening: Colonoscopy 11/29/2026 11/29/2021 DTaP,Tdap,and Td Vaccines (4 - Td or Tdap) 03/11/2030 03/11/2020, 08/09/2010, 10/10/2001 Cholesterol Screening (Lipid Panel) 04/01/2030 04/01/2025, 02/15/2024, 02/15/2024, Additional history exists HIV Screening Completed 12/13/2006 COVID-19 Vaccine Discontinued 08/10/2021, , 11/05/2020 Hepatitis C Screening Completed 11/16/2022 Zoster Vaccines Completed 12/22/2022, 06/03/2022 Depression Screening Completed 09/20/2024 HIB Vaccines Aged Out No longer eligi ble based on patient's age to complete this topic HPV Vaccines Aged Out No longer eligi ble based on patient's age to complete this topic Hepatitis A Vaccines Aged Out No long er eligible based on patient's age to complete this topic Hepatitis B Vaccines Discontinued IPV Vaccines Aged Out No longer eligi ble based on patient's age to complete this topic MMR Vaccines Aged Out No longer eligi ble based on patient's age to complete this topic Meningococcal ACWY Vaccine Aged Out N o longer eligible based on patient's age to complete this topic Meningococcal B Vaccine Aged Out No l onger eligible based on patient's age to complete this topic Pneumococcal Vaccine: 50+ Years Discontinued RSV Immunization Patients Under 20 months Aged Out No longer eligible based on patient's age to complete this topic Varicella Vaccines Aged Out No longer eligible based on patient's age to complete this topic Procedures Procedure Name Priority Date/Time Associated Diagnosis Comments EXTERNAL CT REPORT 04/23/2025 COMPREHENSIVE METABOLIC PANEL Routine 04/22/2025 8:33 AM EDT Abdominal mass, LUQ (left upper quadrant) CT HEART CALCIUM SCORING WO CONTRAST Routine 04/17/2025 2:26 PM EDT Sinus bradycardia Acquired dilation of ascending aorta and aortic root (CMS/HCC V24) Amaurosis fugax of left eye Incomplete RBBB Family history of premature coronary artery disease CBC WITH AUTO DIFFERENTIAL Routine 04/09/2025 8:45 AM EDT Screening for metabolic disorder CBC AND DIFFERENTIAL Routine 04/09/2025 8:45 AM EDT Screening for metabolic disorder THYROID STIMULATING HORMONE WITH REFLEX TO FREE T4 AND FREE T3 Routine 04/09/2025 8:45 AM EDT Screening for metabolic disorder HEMOGLOBIN A1C Routine 04/09/2025 8:45 AM EDT Screening for metabolic disorder LIPID PANEL WITH REFLEX TO DIRECT LDL Routine 04/01/2025 8:50 AM EDT Severe sinus bradycardia Dilatation of thoracic aorta (CMS/HCC V24) ECG 12-LEAD Routine 03/25/2025 9:36 AM EDT Sinus bradycardia HEPATITIS C SCREENING Routine 11/16/2022 COLONOSCOPY Routine 11/29/2021 HIV SCREENING Routine 12/13/2006 from Last 3 Months or Most Recently Relevant to Health Maintenance Results * External CT Report (04/23/2025) Anatomical Region Laterality Modality Computed Tomogra phy us Provider [facility] PROCEDURES Final Result * Comprehensive metabolic panel (04/22/2025 8:33 AM EDT) Sodium 138 133 - 145 mmol/L LAB CHEMISTRY METHOD 04/22/2025 12:24 PM EDT [facility] Potassium 4.7 3.5 - 5.5 mmol/L LAB CHEMISTRY METHOD 04/22/2025 12:24 PM EDT [facility] Chloride 106 96 - 110 mmol/L LAB CHEMISTRY METHOD 04/22/2025 12:24 PM EDT [facility] CO2 27 21 - 32 mmol/L LAB CHEMISTRY METHOD 04/22/2025 12:24 PM EDT [facility] Anion Gap 5 3 - 11 LAB CHEMISTRY METHOD 04/22/2025 12:24 PM [facility] Glucose 84 70 - 100 mg/dL LAB CHEMISTRY METHOD 04/22/2025 12:24 PM [facility] BUN 14 5 - 25 mg/dL LAB CHEMISTRY METHOD 04/22/2025 12:24 PM [facility] Creatinine 0.98 0.70 - 1.30 mg/dL LAB CHEMISTRY METHOD 04/22/2025 12:24 PM [facility] eGFR 91 >=60 mL/min/1. 73m2 LAB CHEMISTRY METHOD 04/22/2025 12:24 PM [facility] Comment:Calculation based on the Chronic Kidney Disease Epidemiology Collaboration (CKD-EPI) equation refit without adjustment for race. BUN/Creatinine Ratio 14.3 LAB CHEMISTRY METHOD 04/22/2025 12:24 PM [facility] Calcium 9.1 8.5 - 10.5 mg/dL LAB CHEMISTRY METHOD 04/22/2025 12:24 PM [facility] AST (SGOT) 24 10 - 42 unit/L LAB CHEMISTRY METHOD 04/22/2025 12:24 PM [facility] ALT (SGPT) 22 10 - 60 unit/L LAB CHEMISTRY METHOD 04/22/2025 12:24 PM [facility] Alkaline Phosphatase 77 42 - 121 unit/L LAB CHEMISTRY METHOD 04/22/2025 12:24 PM [facility] Total Protein 7.3 6.0 - 8.0 g/dL LAB CHEMISTRY METHOD 04/22/2025 12:24 PM [facility] Albumin 4.3 3.2 - 5.0 g/dL LAB CHEMISTRY METHOD 04/22/2025 12:24 PM [facility] Total Bilirubin 0.8 0.0 - 1.4 mg/dL LAB CHEMISTRY METHOD 04/22/2025 12:24 PM EDT [facility] Blood Venous blood specimen / Unknown Venipuncture / Unknown 04/22/2025 8:33 AM EDT 04/22/2025 8:33 AM EDT Richi Engle MD LAB BLOOD ORDERABLES Shima l Result Performing Organization Address [facility]/ZIP Co de Phone Number [facility] [address] [place] [address], [place] [phone] * CT Heart Calcium Scoring wo Contrast (04/17/2025 2:26 PM EDT) Anatomical Region Laterality Modality Body Computed Tomogra phy Black De Anda MD IMG CT PROCEDURES Final Result * Thyroid stimulating hormone with reflex to free t4 and free t3 (04/09/2025 8:45 AM EDT) TSH 1.65 0.40 - 4.00 mcIU/mL LAB CHEMISTRY METHOD 04/09/2025 1:15 PM EDT [facility] Blood Venous blood specimen / Unknown Venipuncture / Unknown 04/09/2025 8:45 AM EDT 04/09/2025 8:45 AM EDT Caitlin Uriostegui NP LAB BLOOD ORDERABLES Final R esult Performing Organization Address City/[facility]/ZIP Co de Phone Number [facility] [address] [place] [address], [place] [phone] * CBC auto differential (04/09/2025 8:45 AM EDT) WBC 5.1 4.8 - 10.8 [facility] LAB HEMETOLOGY METHOD 04/09/2025 12:43 PM EDT [facility] RBC 4.60 4.50 - 5.50 M/[facility] LAB HEMETOLOGY METHOD 04/09/2025 12:43 PM EDT [facility] Hemoglobin 14.6 13.5 - 17.5 g/dL LAB HEMETOLOGY METHOD 04/09/2025 12:43 PM [facility] Hematocrit 42.0 42.0 - 54.0 % LAB HEMETOLOGY METHOD 04/09/2025 12:43 PM [facility] MCV 92.1 79.0 - 98.0 FL LAB HEMETOLOGY METHOD 04/09/2025 12:43 PM [facility] MCH 32.0 27.0 - 32.0 pcg LAB HEMETOLOGY METHOD 04/09/2025 12:43 PM [facility] MCHC 34.8 32.0 - 37.0 g/dL LAB HEMETOLOGY METHOD 04/09/2025 12:43 PM [facility] RDW 12.4 11.0 - 15.0 % LAB HEMETOLOGY METHOD 04/09/2025 12:43 PM [facility] Platelets 225 130 - 400 K/mcL LAB HEMETOLOGY METHOD 04/09/2025 12:43 PM [facility] MPV 10.0 7.0 - 11.0 FL LAB HEMETOLOGY METHOD 04/09/2025 12:43 PM [facility] NRBC 0.0 <1.0 % LAB HEMETOLOGY METHOD 04/09/2025 12:43 PM [facility] NRBC Absolute 0.00 <0.10 K/mcL LAB HEMETOLOGY METHOD 04/09/2025 12:43 PM [facility] Neutrophils Relative 49.8 % LAB HEMETOLOGY METHOD 04/09/2025 12:43 PM [facility] Lymphocytes Relative 38.5 % LAB HEMETOLOGY METHOD 04/09/2025 12:43 PM [facility] Monocytes Relative 8.9 % LAB HEMETOLOGY METHOD 04/09/2025 12:43 PM EDT [facility] Eosinophils Relative 1.6 % LAB HEMETOLOGY METHOD 04/09/2025 12:43 PM EDT [facility] Basophils Relative 1.0 % LAB HEMETOLOGY METHOD 04/09/2025 12:43 PM EDT [facility] Immature Granulocytes Relative 0.2 % LAB HEMETOLOGY METHOD 04/09/2025 12:43 PM EDT [facility] Neutrophils Absolute 2.53 1.50 - 7.00 K/mcL LAB HEMETOLOGY METHOD 04/09/2025 12:43 PM EDT [facility] Lymphocytes Absolute 1.95 1.00 - 5.00 K/mcL LAB HEMETOLOGY METHOD 04/09/2025 12:43 PM EDT [facility] Monocytes Absolute 0.45 0.20 - 1.00 K/mcL LAB HEMETOLOGY METHOD 04/09/2025 12:43 PM EDT [facility] Eosinophils Absolute 0.08 0.00 - 0.50 K/mcL LAB HEMETOLOGY METHOD 04/09/2025 12:43 PM EDT [facility] Basophils Absolute 0.05 0.00 - 0.20 K/mcL LAB HEMETOLOGY METHOD 04/09/2025 12:43 PM EDT [facility] Immature Granulocytes Absolute 0.01 0.00 - 0.03 K/mcL LAB HEMETOLOGY METHOD 04/09/2025 12:43 PM EDT [facility] Blood Venous blood specimen / Unknown Venipuncture / Unknown 04/09/2025 8:45 AM EDT 04/09/2025 8:45 AM EDT us Caitlin Uriostegui NP LAB BLOOD ORDERABLES Final R esult [facility] [address] [place] [address], * Hemoglobin A1c (04/09/2025 8:45 AM EDT) Pathologist [facility] Hemoglobin A1C 5.2 <6.5 % LAB CHEMISTRY METHOD 04/09/2025 2:26 PM EDT [facility] Mean Bld Glu Estim. 103 mg/dL LAB CHEMISTRY METHOD 04/09/2025 2:26 PM EDT [facility] Blood Venous blood specimen / Unknown Venipuncture / Unknown 04/09/2025 8:45 AM EDT 04/09/2025 8:45 AM EDT Caitlin Uriostegui NP LAB BLOOD ORDERABLES Final R esult [facility] [address] [place] [address], * Lipid panel with reflex to direct LDL (04/01/2025 8:50 AM EDT) [facility] Cholesterol 156 0 - 200 mg/dL LAB CHEMISTRY METHOD 04/01/2025 12:17 PM EDT [facility] Triglycerides 85 0 - 150 mg/dL LAB CHEMISTRY METHOD 04/01/2025 12:17 PM T [facility] HDL 52 >=40 mg/dL LAB CHEMISTRY METHOD 04/01/2025 12:17 PM EDT [facility] LDL Calculated 87 0 - 100 mg/dL LAB CHEMISTRY METHOD 04/01/2025 12:17 PM EDT [facility] VLDL Cholesterol Man 17 mg/dL LAB CHEMISTRY METHOD 04/01/2025 12:17 PM EDT [facility] Non HDL Chol. (LDL+VLDL) 104 <145 mg/dL LAB CHEMISTRY METHOD 04/01/2025 12:17 PM T [facility] Chol/HDL Ratio 3.0 0.0 - 4.4 LAB CHEMISTRY METHOD 04/01/2025 12:17 PM EDT [facility] Blood Venous blood specimen / Unknown Venipuncture / Unknown 04/01/2025 8:50 AM EDT 04/01/2025 8:50 AM EDT Black De Anda MD LAB BLOOD ORDERABLES Final Resu lt [facility] [address] [place] [address], * ECG 12 lead (03/25/2025 9:36 AM EDT) Ventricular Rate ECG 51 BPM GEMUSE Atrial Rate 51 BPM GEMUSE P-R Interval 162 ms GEMUSE QRS Duration 86 ms GEMUSE Q-T Interval 394 ms GEMUSE QTc 363 ms GEMUSE P Wave [place] 53 degrees GEMUSE R [place] 9 degrees GEMUSE T [place] 50 degrees GEMUSE ECG Interpretation Sinus bradycardia Otherwise normal ECG No previous ECGs available Confirmed by Alexis DE ANDA, BLACK ([id number]) on 03/25/2025 9:39:20 AM GEMUSE 03/25/2025 9:36 AM EDT 03/25/2025 9:39 AM EDT Black De Anda MD ECG ORDERABLES Final Result GEMUSE * Hepatitis C Screening (11/16/2022) Hepatitis C Screening Abstracted Historical Provider HEALTH MAINTENANCE Final Result * Colonoscopy (11/29/2021) Colonoscopy No Interpretation , Abstracted Anatomical Region Laterality Modality Other Historical Provider HEALTH MAINTENANCE Final Result * HIV Screening (12/13/2006) HIV Screening Abstracted Historical Provider HEALTH MAINTENANCE Final Result from Last 3 Months or Most Recently Relevant to Health [place] [id number] [employer] Care Teams Auto Brake Technician Relationship Specialty Start Date End Date Richi Engle MD [address] [place] [phone] PCP - General Internal Medicine 08/06/20
== END 2025-05-28 08:06 | disposition home or self-care (01) ==
LOC: HO.SH 08:05
DX: Z01.118 Encounter for examination of ears and hearing with other abnormal findings (principal); H90.3 Sensorineural hearing loss, bilateral
CPT/HCPCS: 92557

== ENCOUNTER 2025-07-29 14:34 | Outpatient (AMB) | payer OTHER, SELFPAY ==
[2025-07-29 14:36] VITALS: BP 120/72; PULSE 64; O2SAT 99; BMI 27.4
--- NOTE | 2025-07-29 14:36 | MHC.OFFVIS ---
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 Pt reports the following interval medical changes: He reports he underwent a routine follow-up renal US, to monitor known renal cysts, an incidental right renal 5.2cm mass was identified, which was not appreciated on a follow-up abd CT. However, it was again seen on a subsequent follow-up renal US. Add a general surgeon consult, however he is planning to request a 2nd opinion. He reports that his migraine attacks continue to be episodic, no more than 4 times in a month. Ubrelvy continues to be effective. He is having less frequent confusional migraines a/w nausea and carin vu, about 3 since his last visit, and now when they occur they are shorter- lasting less than 5 minutes. He has confusional migraine attacks have never been associated with LOC. He is able to drive and function during them. He does not report any change in his chronic intermittent left eye droop. Baseline migraine headache characteristics: Aura- Scintillating and streaky vision changes a/w area of vision loss- at most would last 20 minutes. About a once a year, has a vision change- looks like a window shade pulling down, and has vision loss x's 30 seconds and then resolves. About twice a year, he will feel like his eyes are crossing a/w eye pressure- this also lasts about 30 seconds. Moderate to Severe (If untreated), Unilateral (either left or right) aching or pounding pain a/w photophobia, phonophobia, nausea, vomiting, activity intolerance, slightly increased pins and needles in his fingers. 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 Social History Alcohol intake: current Alcohol intake frequency: a few times a month Patient Tobacco Use Status: Never used Tobacco Physical Exam Vital Signs: Last Vital Signs Pulse 64 07/29/25 14:36 BP 120/72 07/29/25 14:36 Pulse Ox 99 07/29/25 14:36 Oxygen Delivery Method Room Air 07/29/25 14:36 BMI result Body Mass Index 27.4 Const General: cooperative and no acute distress Orientation/consciousness: patient oriented x3 Resp Effort & Inspection: normal respiratory effort and able to speak in complete sentences Neuro Other: Very mild baseline facial asymmetry. Otherwise symmetric elevation of eyebrows, symmetric strength and closing and opening eyelids, smile from. General: patient oriented x3 Cognition (Neuro): normal cognition Psych Appearance: grossly normal Mental Status: mental status grossly normal Speech and movement: Normal speech and movement present Affect: normal affect Attitude: cooperative Assessment & Plan Assessment & Plan (1) Migraine with aura: Code(s): G43.109 - Migraine with aura, not intractable, without status migrainosus Category: Medical Qualifiers: Status migrainosus presence: without status migrainosus Intractability: not intractable Qualified Code(s): G43.109 - Migraine with aura, not intractable, without status migrainosus (2) Bradycardia: Comment: Improved upon discontinuing nadolol Code(s): R00.1 - Bradycardia, unspecified Category: Medical (3) Episode of visual loss: Code(s): H53.129 - Transient visual loss, unspecified eye Category: Medical Qualifiers: Laterality: unspecified laterality Qualified Code(s): H53.129 - Transient visual loss, unspecified eye Plan For acute headache treatment: Continue Ubrogepant 100mg tab- 1/2-1 tab at onset of migraine or onset of aura, confusion, and for mild-mod nagging headaches. Max 200mg/day. Previous acute migraine medication trials: Sumatriptan and Zomig. Acute migraine medication contraindications: All triptans- d/t HTN, HLD, artherosclerosis in setting of positive family h/o early CV dz. ? For headache prevention medication: May hold Ajovy 225mg/ml order- however resume if headache frequency increases to more than 6 headache days per month. Previous migraine prevention medication trials: Candesartan- increased eye pressure. A CCB (? verapamil)- not tolerated. Topiramate- sedation and cognitive side effects. Beta-andria: Nadolol 10mg po qd at this is causing bradycardia and constipation. Migraine prevention medication contraindications: Candesartan. TCAs- d/t h/o incomplete RBBB. Discussed non-pharmacological options- such as Nerivio neuromodulation device. For left eye droop: Brain MRI 2021- unremarkable. Left eye droop onset preceded this MRI. Continue to monitor. Future considerations: EEG, head CTA/MRA Pt to follow-up in 6 months or sooner prn. Medications: Refilled ubrogepant (Ubrelvy) 50 - 100 mg orally PRN; take at onset of migraine, may repeat in 2hrs (may take w/ Ibuprofen) 48 tabs 3RF migraine headache 90 days Coding Level of Care Code Est Pt Level 4 (16867) Diagnoses Migraine with aura and without status migrainosus, not intractable G43.109 Status migrainosus presence: without status migrainosus Intractability: not intractable Bradycardia R00.1 Episode of visual loss, unspecified laterality H53.129 Laterality: unspecified laterality
--- OUTSIDE RECORDS SUMMARY | 2025-07-29 16:16 | XMS_ITS | Clinical Summary ---
Author Organization [facility] Address [address] [place] [address] Care Team Providers Care Reamer Hand Name Role Phone Richi Engle MD Primary Care Provider Un available Allergies Active Allergy Reactions Criticality Noted Date Comments Candesartan Other (See Comments) High 08/26/2019 eye pressure, blurry vision eye pressure, blurry vision Cephalexin Hives Medium 02/21/2006 ??rash as ; however he is able [...] 04/18/2025 06/01/2024, , 09/28/2022, Additional history exists RSV Vaccine 50 years and old er and Patients (1 - 1-dose 75+ series) 01/17/2044 COVID-19 Vaccine Completed 06/01/2024, , 09/28/2022, Additional history exists Insurance [employer] HMO/POS Care Teams Reamer Hand Relationship Specialty Start Date End Date Richi Engle MD PCP - General Internal Medicine 01/22/22
== END 2025-07-29 15:29 | disposition home or self-care (01) ==
LOC: HO.HSMS 14:35
PROVIDERS: Visit Provider Nurse Practitioner Family
DX: G43.109 Migraine with aura, not intractable, without status migrainosus (principal); R00.1 Bradycardia, unspecified; H53.129 Transient visual loss, unspecified eye
CPT/HCPCS: 99214